=== PATIENT | female | born 1980 | race Caucasian/White ===

== ENCOUNTER 2021-03-18 12:06 | Emergency (ER) | payer OTHER ==
[~2021-03-18] VITALS: Ht 165.1 cm; Wt 70.3 kg
[~2021-03-18 12:06] MED LIST: ACETYL SALICYL500 GM PO; CAFFEINE PO; LAMISIL250 MG PO; TRAMADOL 50 MG50 MG PO; VALIUM5 MG PO
[2021-03-18] MEDS ORDERED: LISINOPRIL10 MG PO (12:11)
[2021-03-18] MEDS ORDERED: LASIX 40 MG TAB40 MG PO (12:11)
[2021-03-18] MEDS ORDERED: TOPROL XL25 MG PO (12:11)
[2021-03-18 15:08] LABS: CALCIUM 8.6 mg/dL (8.5-10.1); CREATININE 0.8 mg/dL (0.6-1.3); POTASSIUM 3.5 mmol/L (3.5-5.1)
[2021-03-18 17:06] VITALS: BP 141/89
--- NOTE | 2021-03-19 09:29 | EKG ---
[place] [address] ELECTROCARDIOGRAM REPORT Name: ANA MTAMMY GARCIA Room: [facility]#: [id number] Admission: 03/18/21 Attend Phys: Discharge: 03/18/21 Date of : 80 Date of Service: 03/18/21 1212 Report #: [id number] THIS REPORT FOR: //name// [facility] ED Test Date: 2021-03-18 Test Time: 12:12:34 Pat Name: TAMMY VIRAMONTES Department: Room: Gender: F Pump Installer: Quoc : 1980 Requested By: Markus Parra Order Number: [id number] MD: Refugio Herrera Measurements Intervals [place] Rate: 115 P: 71 OK: 142 QRS: 54 QRSD: 79 T: 2 QT: 356 QTc: 493 Interpretive Statements Sinus tachycardia Borderline repolarization abnormality Borderline prolonged QT interval No previous ECG available for comparison Electronically Signed On 03-19-2021 9:29:26 APPLICATION SOFTWARE DEVELOPER by Refugio Herrera [email or web address] <ELECTRONICALLY SIGNED> By: Refugio Herrera MD, [facility] 03/19/21 0929 11 11 Refugio Herrera MD, [facility] /EPI
--- NOTE | 2021-03-19 09:30 | EKG ---
[place] [address] ELECTROCARDIOGRAM REPORT Name: ANA MTAMMY GARCIA Room: [facility]#: [id number] Admission: 03/18/21 Attend Phys: Discharge: 03/18/21 Date of : 80 Date of Service: 03/18/21 1226 Report #: [id number] THIS REPORT FOR: //name// [facility] ED Test Date: 2021-03-18 Test Time: 12:26:26 Pat Name: TAMMY VIRAMONTES Department: Room: Gender: F Equip Maint Eng: MANUEL : 1980 Requested By: Markus Parra Order Number: [id number] MD: Refugio Herrera Measurements Intervals [place] Rate: 110 P: 70 [place]: 156 QRS: 57 QRSD: 86 T: 3 QT: 345 QTc: 467 Interpretive Statements Sinus tachycardia Right atrial enlargement Borderline repolarization abnormality Compared to ECG 03/18/2021 12:12:34 no change Electronically Signed On 03-19-2021 9:30:21 BAGGAGE INSPECTOR by Refugio Herrera [email or web address] <ELECTRONICALLY SIGNED> By: Refugio Herrera MD, [facility] 03/19/21 0930 1226 1226 Refugio Herrera MD, [facility] /EPI
== END 2021-03-18 17:07 ==
LOC: M.ERS 12:06
PROVIDERS: Emergency Medicine
DX: F41.9 Anxiety disorder, unspecified (principal); R07.89 Other chest pain; I50.9 Heart failure, unspecified; Z79.899 Other long term (current) drug therapy